=== PATIENT | female | born 1945 | race African-American/Black ===

== ENCOUNTER 2023-10-31 16:34 | Emergency (ER) | payer OTHER ==
[~2023-10-31] VITALS: Ht 165.1 cm; Wt 75.0 kg
[2023-10-31 16:38] VITALS: O2SAT 99
[2023-10-31] MEDS: LIDOCAINE HCL 1% 20ML VIAL (Pyxis) INJ INFIL ONE (17:00)
[2023-10-31 17:22] LABS: PARTIAL THROMBOPLASTIN TIME 29.4 sec (23.4-31.0); PROTHROMBIN TIME 10.7 sec (9.6-11.0)
[2023-10-31 17:23] LABS: HEMATOCRIT. 32.2 % (36.0-48.0); HEMOGLOBIN. 10.8 g/dL (12.0-16.0); MEAN CORPUSCULAR HEMOGLOBIN 33.2 pg (28.0-32.0); MEAN CORPUSCULAR HGB CONC 33.4 g/dL (31.0-37.0); MEAN CORPUSCULAR VOLUME 99.4 fL (81.0-99.0); MEAN PLATELET VOLUME 7.6 fl (7.4-10.4); PLATELET 257 x1000/uL (130-400); RED BLOOD CELL COUNT 3.24 mill/uL (4.2-5.4); WHITE BLOOD COUNT 4.2 x1000/uL (4.5-11.0)
[2023-10-31 17:25] LABS: DIFFERENTIAL COMMENT 1
[2023-10-31 17:55] LABS: NUCLEATED RED BLOOD CELLS 2 /100 WBC; PLATELET ESTIMATE NORMAL
[2023-10-31 18:45] VITALS: BP 147/63; PULSE 63; RESP 12; TEMP 98.1
== END 2023-10-31 18:55 | disposition home or self-care (01) ==
LOC: ER 16:34
DX: T82.838A Hemorrhage due to vascular prosthetic devices, implants and grafts, initial encounter (principal); S41.112A Laceration without foreign body of left upper arm, initial encounter; X58.XXXA Exposure to other specified factors, initial encounter; Y93.89 Activity, other specified; Y92.89 Other specified places as the place of occurrence of the external cause; Y99.8 Other external cause status
CPT/HCPCS: 12001; 36415; 85025; 99283

== ENCOUNTER 2024-07-02 16:39 | Emergency (ER) | payer OTHER ==
[~2024-07-02] VITALS: Ht 160 cm; Wt 64.0 kg
[2024-07-02 16:53] VITALS: TEMP 98.1; O2SAT 98
[2024-07-02] MEDS ORDERED: BACITRACIN ZINC OINT UDPKT TOP ONE (17:45)
[2024-07-02] MEDS ORDERED: LIDOCAINE HCL/PF 1% 10 MG/ML 5ML VIAL INFIL ONE (17:45)
[2024-07-02 20:00] VITALS: BP 153/70; PULSE 79; RESP 18; O2SAT 95
[2024-07-12] MEDS ORDERED: ALLO100T PO (13:19)
[2024-07-12] MEDS ORDERED: LEVO88TA7 PO (13:19)
[2024-07-12] MEDS ORDERED: ISOS30TA91 PO (13:19)
[2024-07-12] MEDS ORDERED: MIDO5TAB4 PO (13:19)
[2024-07-12] MEDS ORDERED: CINA30 PO (13:19)
== END 2024-07-02 20:19 | disposition home or self-care (01) ==
LOC: ER 16:39
DX: T82.838A Hemorrhage due to vascular prosthetic devices, implants and grafts, initial encounter (principal); I51.9 Heart disease, unspecified; E11.9 Type 2 diabetes mellitus without complications; Z88.1 Allergy status to other antibiotic agents; Z88.3 Allergy status to other anti-infective agents; Z88.6 Allergy status to analgesic agent; Z88.8 Allergy status to other drugs, medicaments and biological substances; Z98.890 Other specified postprocedural states; Z86.39 Personal history of other endocrine, nutritional and metabolic disease; Z99.2 Dependence on renal dialysis
CPT/HCPCS: 99283; 12001; J3490